=== PATIENT | female | born 1960 | race Caucasian/White ===

== ENCOUNTER → 2024-08-21 | Outpatient (CLI) | payer MEDICARE ==
[2024-08-30 11:49] LABS: HPV HIGH RISK BY TMA Not Detected; HPV SOURCE Cervical
== END | disposition home or self-care (01) ==
LOC: LAB 16:55 → LAB SHORT 16:55
PROVIDERS: Family Medicine
DX: Z01.419 Encounter for gynecological examination (general) (routine) without abnormal findings (principal)
CPT/HCPCS: 87624; G0123

== ENCOUNTER 2024-10-25 06:35 | Day surgery (SDC) | payer MEDICARE, OTHER ==
[~2024-10-25] VITALS: Ht 157.5 cm; Wt 49.4 kg
[~2024-10-25 06:35] MED LIST: ALBU90OI INH; ASPIR 8181 M1 PO; CALCIUM 1,0001 EAC1 PO; Lactated Ringer's 1,000 ML IV SCH; THERA-D2000 UNIT PO
[2024-10-25 07:17] VITALS: BP 127/79
--- NOTE | 2024-10-25 07:22 | NUR ---
History, Chart, Medications and Allergies reviewed before start of procedure. Lungs DIMINISHED IN THE BASES, EXP WHEEZES. Patient confirms NPO status and agrees with scheduled surgery. Pre-Op teaching done. Pt verbalizes understanding. Patient states colon prep results clear.
--- NOTE | 2024-10-25 08:25 | NUR ---
10/25/24 0825 Nelda Antonio 0812- History, Chart, Medications and Allergies reviewed before start of procedure.MONITOR INTACT WITH CONTINUOUS PULSE OXIMETRY, CONTINUOUS END TITAL CO2, 3-LEAD EKG AND INTERMITTENT BLOOD PRESSURE.3-LEAD EKG REVIEWED WITH PHYSICIAN PRIOR TO START OF PROCEDURE.O2 VIA POM INTACT THROUGHOUT SEDATION/PROCEDURE. PROVIDING MAC-SEE ANESTHESIA RECORD.
[2024-10-25 08:57] VITALS: BP 102/70
[2024-10-25 09:06] VITALS: BP 115/80
--- NOTE | 2024-10-25 09:17 | NUR ---
DISCHARGE PT A&OX4/VSS/RA/JARRELL PO H20/DENIES PAIN/IV DC'D, DC INS PROVIDED, PT REP UNDERSTANDING THOSE INSTRUCTIONS INCLUDING KEEP FU APPT, LEFT VIA WC WITH DC VOL WITH ALL PERSONAL POSSESSIONS TO GO HOME WITH [facility]/WORKERS' COMPENSATION CLAIMS EXAMINER. COPY OF DC INS SENT WITH PT.
[2024-10-25] MEDS ORDERED: Propofol 10mg/ml 20 ml Vial (Procedural) IV ONE (14:57)
== END 2024-10-25 23:00 | disposition home or self-care (01) ==
LOC: ORSCMMR 06:35 → ORD 08:00 → ORSCMMR 23:00
PROVIDERS: Internal Medicine Gastroenterology
PROC: 0DBK8ZX Excision of Ascending Colon, Via Natural or Artificial Opening Endoscopic, Diagnostic (ICD-10-PCS; principal; 2024-10-25 08:00)
PROC: 0DBM8ZX Excision of Descending Colon, Via Natural or Artificial Opening Endoscopic, Diagnostic (ICD-10-PCS; principal; 2024-10-25 08:00)
DX: Z12.11 Encounter for screening for malignant neoplasm of colon (principal); Z86.0101 Personal history of adenomatous and serrated colon polyps; K51.40 Inflammatory polyps of colon without complications; D12.2 Benign neoplasm of ascending colon; F17.210 Nicotine dependence, cigarettes, uncomplicated; J44.9 Chronic obstructive pulmonary disease, unspecified; Z79.899 Other long term (current) drug therapy
CPT/HCPCS: 88305; J2704; J7120